=== PATIENT | male | born 1980 | race Caucasian/White ===

== ENCOUNTER 2018-02-23 14:52 | Emergency (ER) | payer SELFPAY ==
[~2018-02-23] VITALS: Ht 190.5 cm; Wt 106.1 kg
--- NOTE | 2018-02-23 17:07 | PHYS DOC ---
Past History Past Medical History: No Pertinent History Past Surgical History: No Surgical History Alcohol Use: None Drug Use: None Adult General Chief Complaint Chief Complaint: INSECT BITE HPI HPI 37-year-old male presents with insect bite on his right thigh. 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 He is several insect bites on his legs from the same day. It has had some spontaneous drainage but the patient is unsure what color. There is still a small red area and the patient wants to make sure he doesn't have infection. Patient also complains of an itchy rash in his groin area. He has been trying [employer] medicated lotion but it does not seem to be resolving the rash. He denies fever or chills. He has no other complaints. Review of Systems Review of Systems Constitutional: Denies fever or chills [] Eyes: Denies change in visual acuity, redness, or eye pain [] HENT: Denies nasal congestion or sore throat [] Respiratory: Denies cough or shortness of breath [] Cardiovascular: No additional information not addressed in HPI [] GI: Denies abdominal pain, nausea, vomiting, bloody stools or diarrhea [] : Denies dysuria or hematuria [] Musculoskeletal: Denies back pain or joint pain [] Integument: Insect bite and groin rash[] Neurologic: Denies headache, focal weakness or sensory changes [] Endocrine: Denies polyuria or polydipsia [] All other systems were reviewed and found to be within normal limits, except as documented in this note. Allergies Allergies Allergies Coded Allergies Type Severity Reaction Last Updated Verified No Known Drug Allergies 02/23/18 No Physical Exam Physical Exam Constitutional: Well developed, well nourished, no acute distress, non-toxic appearance. [] HENT: Normocephalic, atraumatic, bilateral external ears normal, oropharynx moist, no oral exudates, nose normal. [] Eyes: PERRLA, EOMI, conjunctiva normal, no discharge. [] Neck: Normal range of motion, no tenderness, supple, no stridor. [] Cardiovascular:Heart rate regular rhythm, no murmur [] Lungs & Thorax: Bilateral breath sounds clear to auscultation [] Abdomen: Bowel sounds normal, soft, no tenderness, no masses, no pulsatile masses. [] Skin: 1 cm erythematous area on the anterior right thigh. No fluctuant mass. Evidence of spontaneous drainage. Bilateral groin area has a diffuse, patchy, erythematous rash consistent with fungal infection.[] Back: No tenderness, no CVA tenderness. [] Extremities: No tenderness, no cyanosis, no clubbing, ROM intact, no edema. [] Neurologic: Alert and oriented X 3, normal motor function, normal sensory function, no focal deficits noted. [] Psychologic: Affect normal, judgement normal, mood normal. [] Current Patient Data Vital Signs Vital Signs Date Time Temp Pulse Resp B/P (MAP) Pulse Ox O2 Delivery O2 Flow Rate FiO2 02/23/18 15:14 98.3 62 16 100 Room Air EKG EKG [] Radiology/Procedures Radiology/Procedures [] Course & Med Decision Making Course & Med Decision Making Pertinent Labs and Imaging studies reviewed. (See chart for details) Insect bite on the patient's thyroid testing infected. It has spontaneously drained and there does not appear to be drainable mass this time. I will place him on an antibiotic he was first dose in the ED. The patient's groin rash appears to be consistent with mitra infection. I'll provide a prescription for this as well. The patient is stable for discharge at this time. [] Dragon Disclaimer Dragon Disclaimer This electronic medical record was generated, in whole or in part, using a voice recognition dictation system. ROBIN SCOTT DO Feb 23, 2018 17:07
[2018-02-23] MEDS ORDERED: CLOT15CR4 TP (17:12)
[2018-02-23] MEDS ORDERED: CEPH-264 PO (17:12)
[2018-02-23 17:23] VITALS: BP 158/87
[2018-02-23] MEDS ORDERED: CEPHALEXIN 250 MG CAPSULE PO ONE (17:45)
== END 2018-02-23 17:23 | disposition home or self-care (01) ==
LOC: ER 14:52
DX: S70.361A Insect bite (nonvenomous), right thigh, initial encounter (principal); B37.89 Other sites of candidiasis; L08.89 Other specified local infections of the skin and subcutaneous tissue; W57.XXXA Bitten or stung by nonvenomous insect and other nonvenomous arthropods, initial encounter; Y93.89 Activity, other specified; Y92.89 Other specified places as the place of occurrence of the external cause; Y99.8 Other external cause status
CPT/HCPCS: 99283